=== PATIENT | female | born 1945 | race Caucasian/White ===

== ENCOUNTER → 2016-08-25 | Outpatient (CLI) | payer MEDICARE ==
--- NOTE | 2016-08-25 16:07 | BD ---
EXAMINATION TYPE: MG DEXA axial skeleton. DATE OF EXAM: 08/25/2016 COMPARISON: NONE CLINICAL HISTORY: 71-year-old female with osteoporosis. Height: 62 Weight: 148.2 FRAX RISK QUESTIONS: Alcohol (3 or more units per day): no Family History (Parent hip fracture): no Glucocorticoids (More than 3mos): no (Ex: prednisone, prednisolone, methylprednisolone, dexamethasone, and hydrocortisone). History of Fracture in Adulthood: no Secondary Osteoporosis: 1. Type 1 Diabetes: no 2. Hyperthyroidism: no 3. Menopause before 45: no 4. Malnutrition: no 5. Chronic liver disease: no Rheumatoid Arthritis: no Current Tobacco Use: no RISK FACTORS HISTORY OF: Hip Fracture (Right/Left): no Spine Fracture: no History of Wrist Fracture: no Surgery to Spine/Hip(right/left)/Wrist (right/left): no Family History of Osteoporosis: no Active: yes Diet low in dairy products/other sources of calcium: no Postmenopausal woman: age 46 Lost more than 2 inches in height since high school: no Frequent falls: no Poor Health: no Hyperparathyroidism: no Adrenal Insufficiency: no MEDICATIONS: none Additional History: EXAM MEASUREMENTS: Bone mineral densitometry was performed using the [employer] System. Bone mineral density as measured about the Lumbar spine is: ----- L1-L4(G/cm2): 1.135 T Score Values are as follows: ----- L2: 0.2 ----- L3: -1.2 ----- L4: -1.6 ----- L1-L4: -0.4 Bone mineral density has: increased 3.0 % since study of: 07.26.2014 Bone mineral density about the R hip (g/cm2): 0.949 Bone mineral density about the L hip (g/cm2): 0.817 T Score values are as follows: -----R Neck: -0.6 -----L Neck: -1.6 -----R Total: -0.6 -----L Total: -0.7 Bone mineral density has: decreased -0.6 % since study of: 07.26.2014 IMPRESSION: Osteopenia as indicated by T score values within the left hip. There is slightly increased risk of fracture and the patient may be considered for treatment. Re-Screen 2-5 years. NOTE: T-SCORE=SD OF THE YOUNG ADULT MEAN.
== END | disposition home or self-care (01) ==
LOC: RADBDWWP 12:43
PROVIDERS: ATTEND Internal Medicine Geriatric Medicine
DX: M85.80 Other specified disorders of bone density and structure, unspecified site (principal)
CPT/HCPCS: 77080

== ENCOUNTER → 2017-03-22 | Outpatient (CLI) | payer MEDICARE ==
--- NOTE | 2017-03-24 09:17 | MM ---
Reason for exam: screening (asymptomatic). Last mammogram was performed 1 year and 4 months ago. History: Patient is postmenopausal. Benign excisional biopsy of the left breast, 2000. Took estrogen for 4 years. Physical Findings: A clinical breast exam by your physician is recommended on an annual basis and results should be correlated with mammographic findings. MG 3D Screening Mammo W/Cad Bilateral CC and MLO view(s) were taken. Prior study comparison: November 15, 2015, bilateral MG 3d screening mammo w/cad. July 26, 2014, left breast MG diagnostic mammo LT w CAD. There are scattered fibroglandular densities. Finding: There are typically benign calcifications in both breasts. No significant changes in finding since November 15, 2015 and July 26, 2014. ASSESSMENT: Benign, BI-RAD 2 RECOMMENDATION: Routine screening mammogram of both breasts in 1 year.
== END | disposition home or self-care (01) ==
LOC: RADMAMWWP 11:30
PROVIDERS: ATTEND Internal Medicine Geriatric Medicine
DX: Z12.31 Encounter for screening mammogram for malignant neoplasm of breast (principal)
CPT/HCPCS: 77063; 77067

== ENCOUNTER → 2018-11-24 | Outpatient (CLI) | payer MEDICARE ==
--- NOTE | 2018-11-27 13:44 | BD ---
EXAMINATION TYPE: Axial Bone Density DATE OF EXAM: 11/24/2018 COMPARISON: NONE CLINICAL HISTORY: Height: Weight: FRAX RISK QUESTIONS: RISK FACTORS HISTORY OF: Active: YES Postmenopausal woman: AGE 51 Lost more than 2 inches in height since high school: YES MEDICATIONS: Additional Medications: BABY ASPIRIN Additional History: EXAM MEASUREMENTS: Bone mineral densitometry was performed using the [employer] System. Bone mineral density as measured about the Lumbar spine is: ----- L1-L4(G/cm2): 1.138 T Score Values are as follows: ----- L2: 0.3 ----- L3: -1.0 ----- L4: -0.3 ----- L1-L4: -0.4 Bone mineral density has: INCREASED 2.1 % since study of: 2016 Bone mineral density about the R hip (g/cm2): 0.899 Bone mineral density about the L hip (g/cm2): 0.926 T Score values are as follows: -----R Neck: -1.0 -----L Neck: -0.8 -----R Total: -0.7 -----L Total: -0.6 Bone mineral density has: DECREASED -0.3 % since study of: 2016 IMPRESSION: Normal (Values between +1 and -1 indicate normal bone mass). Consider repeating this study in 5 year s or sooner if there is some new clinical indication. NOTE: T-SCORE=SD OF THE YOUNG ADULT MEAN.
--- NOTE | 2018-11-28 10:19 | MM ---
Reason for exam: screening (asymptomatic). Last mammogram was performed 1 year and 8 months ago. History: Patient is postmenopausal. Benign excisional biopsy of the left breast, 2000. Took estrogen for 4 years. Physical Findings: A clinical breast exam by your physician is recommended on an annual basis and results should be correlated with mammographic findings. MG 3D Screening Mammo W/Cad Bilateral CC and MLO view(s) were taken. Prior study comparison: March 22, 2017, bilateral MG 3d screening mammo w/cad. November 15, 2015, bilateral MG 3d screening mammo w/cad. There are scattered fibroglandular densities. No significant changes when compared with prior studies. ASSESSMENT: Benign, BI-RAD 2 RECOMMENDATION: Routine screening mammogram of both breasts in 1 year.
== END | disposition home or self-care (01) ==
LOC: RADMAMWWP 14:31
PROVIDERS: ATTEND Internal Medicine Geriatric Medicine
DX: Z12.31 Encounter for screening mammogram for malignant neoplasm of breast (principal); M81.0 Age-related osteoporosis without current pathological fracture
CPT/HCPCS: 77063; 77067; 77080

== ENCOUNTER → 2022-07-30 | Outpatient (CLI) | payer MEDICARE ==
--- NOTE | 2022-07-30 14:41 | BD ---
EXAMINATION TYPE: Axial Bone Density DATE OF EXAM: 07/30/2022 CLINICAL HISTORY: 77 years old Female. ICD-10 CODE: M81.0 osteoporosis related Height: 60.2 Weight: 122 FRAX RISK QUESTIONS: nothing to note here RISK FACTORS HISTORY OF: Postmenopausal woman: yes, at 46 yrs old Lost more than 2 inches in height since high school: yes Hyperparathyroidism: no Adrenal Insufficiency: no MEDICATIONS: Additional Medications: calcium, magnesium, vit d, statin for cholesterol, aspirin, Additional History: cholesterol, EXAM MEASUREMENTS: Bone mineral densitometry was performed using the [employer] System. Bone mineral density as measured about the Lumbar spine is: ----- L1-L4(G/cm2): 1.129 T Score Values are as follows: ----- L1: -0.4 ----- L2: -0.5 ----- L3: -1.5 ----- L4: 0.5 ----- L1-L4: -0.4 Z Score Values are as follows: ----- L1: 1.8 ----- L2: 1.7 ----- L3: 0.6 ----- L4: 2.6 ----- L1-L4: 1.7 Bone mineral density has: Decreased -0.8% since study of: 11.24.2018 Bone mineral density about the R hip (g/cm2): 0.882 Bone mineral density about the L hip (g/cm2): 0.888 T Score values are as follows: -----R Neck: -1.1 -----L Neck: -1.2 -----R Total: -1.0 -----L Total: -1.0 Z Score values are as follows: -----R Neck: 1.1 -----L Neck: 1.2 -----R Total: 1.2 -----L Total: 0.1 Bone mineral density has: Decreased -4.3% since study of: 11.24.2018 FRAX%s: The graph provided illustrates a 11.9% chance for a major osteoporotic fx and a 2.5% chance f or the hips probability for fx in 10 years time. IMPRESSION: Osteopenia (T Score between -2.5 and -1). There is slightly increased risk of fracture and the patient may be considered for treatment. Re-Screen 2-5 years. NOTE: T-SCORE=SD OF THE YOUNG ADULT MEAN.
--- NOTE | 2022-07-31 06:34 | MM ---
Reason for Exam: Screening (asymptomatic). Last mammogram was performed 3 year(s) and 9 month(s) ago. Patient History: Menarche at age 9. First Full-Term at age 18. Left ovary removed at age 57. Right ovary removed at age 57. Hysterectomy at age 57. Postmenopausal. Patient used Estrogen for 4 years. 2000, Benign Excisional Biopsy on the left side. Risk Values: Conchis 5 year model risk: 2.0%. NCI Lifetime model risk: 3.3%. Prior Study Comparison: 11/15/2015 Bilateral Screening Mammogram, [facility]. 03/22/2017 Bilateral Screening Mammogram, [facility]. 11/24/2018 Bilateral Screening Mammogram, [facility]. Tissue Density: The breast tissue is heterogeneously dense. This may lower the sensitivity of mammography. Findings: Analyzed By CAD. A few scattered tiny round and dystrophic calcifications bilaterally are present. There are some new grouped indistinct calcifications in the right breast that warrant further workup. Overall Assessment: Incomplete: need additional imaging evaluation, BI-RAD 0 Management: Special View Mammogram of the right breast. Return for additional spot magnification and true lateral views of the right breast.. Patient should continue monthly self-breast exams. A clinical breast exam by your physician is recommended on an annual basis. This exam should not preclude additional follow-up of suspicious palpable abnormalities. Note on Conchis scores and lifetime risk: 1. A Conchis score greater than 3% is considered moderate risk. If this is the case, consider specialist referral to assess eligibility for a risk reducing agent. 2. If overall lifetime risk for the development of breast cancer is 20% or higher, the patient may qualify for future screening with alternating mammogram and breast MRI. Electronically signed and approved by: Kj Blanco M.D.
== END | disposition home or self-care (01) ==
LOC: RADBDWWP 12:29
PROVIDERS: ATTEND Internal Medicine Geriatric Medicine
DX: Z12.31 Encounter for screening mammogram for malignant neoplasm of breast (principal); M85.89 Other specified disorders of bone density and structure, multiple sites; M81.0 Age-related osteoporosis without current pathological fracture; Z90.721 Acquired absence of ovaries, unilateral; Z78.0 Asymptomatic menopausal state
CPT/HCPCS: 77063; 77067; 77080

== ENCOUNTER → 2022-08-06 | Outpatient (CLI) | payer MEDICARE ==
--- NOTE | 2022-08-06 14:37 | MM ---
Reason for Exam: Additional evaluation requested from abnormal screening. Last screening mammogram was performed less than 1 month ago. Patient History: Menarche at age 9. First Full-Term at age 18. Left ovary removed at age 57. Right ovary removed at age 57. Hysterectomy at age 57. Postmenopausal. Patient used Estrogen for 4 years. 2000, Benign Excisional Biopsy on the left side. Risk Values: Conchis 5 year model risk: 2.0%. NCI Lifetime model risk: 3.3%. Tissue Density: Right: The breast tissue is heterogeneously dense. This may lower the sensitivity of mammography. Findings: Analyzed By CAD. There are 4 groups of coarse heterogeneous microcalcifications that have been very gradually increasing. Short interval follow-up recommended. If any progressive increase, tissue sampling can be performed. Overall Assessment: Probably benign, BI-RAD 3 Management: Diagnostic Mammogram of the right breast in 6 months. . Results were given to the patient verbally at the time of exam. Patient should continue monthly self-breast exams. A clinical breast exam by your physician is recommended on an annual basis. This exam should not preclude additional follow-up of suspicious palpable abnormalities. Note on Conchis scores and lifetime risk: 1. A Conchis score greater than 3% is considered moderate risk. If this is the case, consider specialist referral to assess eligibility for a risk reducing agent. 2. If overall lifetime risk for the development of breast cancer is 20% or higher, the patient may qualify for future screening with alternating mammogram and breast MRI. Electronically signed and approved by: Nicanor Mederos M.D. Radiologist
== END | disposition home or self-care (01) ==
LOC: RADMAMWWP 13:45
PROVIDERS: ATTEND Internal Medicine Geriatric Medicine
DX: R92.8 Other abnormal and inconclusive findings on diagnostic imaging of breast (principal); Z78.0 Asymptomatic menopausal state
CPT/HCPCS: 77065; G0279; 77061

== ENCOUNTER → 2023-02-09 | Outpatient (CLI) | payer MEDICARE ==
--- NOTE | 2023-02-09 15:06 | MM ---
Reason for Exam: Follow-up at short interval from prior study. Last screening mammogram was performed 6 month(s) ago. Patient History: Menarche at age 9. First Full-Term at age 18. Left ovary removed at age 57. Right ovary removed at age 57. Hysterectomy at age 57. Postmenopausal. Patient used Estrogen for 4 years. 2000, Benign Excisional Biopsy on the left side. Risk Values: Conchis 5 year model risk: 2.0%. NCI Lifetime model risk: 3.3%. Prior Study Comparison: 11/24/2018 Bilateral Screening Mammogram, [facility]. 07/30/2022 Bilateral MG 3D screening mammo w/cad, [facility]. 08/06/2022 Right MG 3D work up w/cad RT, [facility]. Tissue Density: Right: There are scattered fibroglandular densities. Findings: Analyzed By CAD. Pattern appears stable. Some anterior calcifications are magnified for closer evaluation. These appear coarse and heterogenous. Short-term follow-up can be performed. Indication views may be useful at that time. Pattern appears stable. Some anterior calcifications are magnified for closer evaluation. These appear coarse and heterogenous. Short-term follow-up can be performed. Magnification views may be useful at that time. Overall Assessment: Probably benign, BI-RAD 3 Management: Diagnostic Mammogram of both breasts in 6 months. A negative mammogram report should not preclude additional follow up of suspicious palpable abnormalities. Patient should continue monthly self breast exam. A clinical breast exam by your physician is recommended on an annual basis and results should be correlated with mammographic findings. Electronically signed and approved by: Pj Dixon D.O. Radiologis
== END | disposition home or self-care (01) ==
LOC: RADMAMWWP 14:07
PROVIDERS: ATTEND Internal Medicine Geriatric Medicine
DX: R92.321 Mammographic fibroglandular density, right breast (principal); Z78.0 Asymptomatic menopausal state
CPT/HCPCS: 77065; G0279; 77061

== ENCOUNTER → 2023-08-25 | Outpatient (CLI) | payer MEDICARE ==
--- NOTE | 2023-08-25 14:53 | MM ---
Reason for Exam: Follow-up at short interval from prior study. Last screening mammogram was performed 12 month(s) ago. Patient History: Menarche at age 9. First Full-Term at age 18. Left ovary removed at age 57. Right ovary removed at age 57. Hysterectomy at age 57. Postmenopausal. Patient used Estrogen for 4 years. 2000, Benign Excisional Biopsy on the left side. Risk Values: Conchis 5 year model risk: 1.9%. NCI Lifetime model risk: 3.0%. Tissue Density: The breasts are heterogeneously dense, which may obscure small masses. Findings: Analyzed By CAD. Stable benign-appearing calcifications seen bilaterally. No evidence for mass or distortion. Overall Assessment: Benign, BI-RAD 2 Management: Screening Mammogram of both breasts in 1 year. . Results were given to the patient verbally at the time of exam. Patient should continue monthly self-breast exams. A clinical breast exam by your physician is recommended on an annual basis. This exam should not preclude additional follow-up of suspicious palpable abnormalities. Note on Conchis scores and lifetime risk: 1. A Conchis score greater than 3% is considered moderate risk. If this is the case, consider specialist referral to assess eligibility for a risk reducing agent. 2. If overall lifetime risk for the development of breast cancer is 20% or higher, the patient may qualify for future screening with alternating mammogram and breast MRI. Electronically signed and approved by: Cas Lea M.D. Radiologis
== END | disposition home or self-care (01) ==
LOC: RADMAMWWP 14:24
PROVIDERS: ATTEND Internal Medicine Geriatric Medicine
DX: R92.333 Mammographic heterogeneous density, bilateral breasts (principal); R92.8 Other abnormal and inconclusive findings on diagnostic imaging of breast; R92.1 Mammographic calcification found on diagnostic imaging of breast; Z78.0 Asymptomatic menopausal state
CPT/HCPCS: 77066; G0279; 77062

== ENCOUNTER 2023-12-03 11:10 | Inpatient (IN) | payer MEDICARE ==
--- NOTE | 2023-12-03 11:39 | ED ---
General Adult HPI - General Chief complaint: Headache Stated complaint: dizziness,vision loss Time Seen by Provider: 12/03/23 11:21 Source: patient, RN notes reviewed, old records reviewed Mode of arrival: ambulatory Limitations: no limitations - History of Present Illness Initial comments: 78-year-old female presenting for evaluation of headache, dizziness, and blurred vision. Patient symptoms began yesterday at approximately 3 PM. Patient had contacted her doctor this morning who recommended she present to the emergency department for evaluation of the symptoms. Patient has been taking aspirin throughout the night to treat her headache. She states her vision is somewhat better but feels that it is blurry on the left. No limb weakness or numbness. No speech abnormalities. No chest pain. - Related Data Home Medications Medication Instructions Recorded Confirmed Aspirin [Adult Low Dose Aspirin EC] 162 mg PO BID 07/21/15 12/03/23 Ascorbic Acid [Vitamin C] 1,000 mg PO DAILY 12/03/23 12/03/23 Calcium Carbonate [Calcium] 1,200 mg PO DAILY 12/03/23 12/03/23 Cholecalciferol (Vitamin D3) 75 mcg PO DAILY 12/03/23 12/03/23 [Vitamin D3 (3000 Iu)] L.acidoph,Paracasei, B.lactis 1 cap PO DAILY 12/03/23 12/03/23 [Probiotic] Magnesium Oxide [Magnesium] 500 mg PO DAILY 12/03/23 12/03/23 Vitamin E (Dl,Tocopheryl Acet) 400 unit PO DAILY 12/03/23 12/03/23 [Vitamin E (400 Iu = 180 mg)] Allergies Allergy/AdvReac Type Severity Reaction Status Date / Time Tetracyclines Allergy Ear Verified 12/03/23 13:58 Swelling Review of Systems ROS Statement: Those systems with pertinent positive or pertinent negative responses have been documented in the HPI. ROS Other: All systems not noted in ROS Statement are negative. Past Medical History Past Medical History: No Reported History History of Any Multi-Drug Resistant Organisms: None Reported Past Surgical History: Appendectomy, Section, Hysterectomy, Tubal Ligation Additional Past Surgical History / Comment(s): bowel resection Past Psychological History: No Psychological Hx Reported Past Alcohol Use History: Rare Past Drug Use History: None Reported General Exam Limitations: no limitations General appearance: alert, in no apparent distress Head exam: Present: atraumatic, normocephalic Eye exam: Present: normal appearance, PERRL, EOMI, other (Patient has a left- sided visual field deficit in both eyes) Neck exam: Present: normal inspection. Absent: tenderness Respiratory exam: Present: normal lung sounds bilaterally. Absent: respiratory distress, wheezes Cardiovascular Exam: Present: regular rate, normal rhythm GI/Abdominal exam: Present: soft. Absent: distended, tenderness Extremities exam: Present: normal inspection, normal capillary refill Neurological exam: Present: alert, oriented X3, CN II-XII intact, other (Visual field deficit is the only abnormality on exam). Absent: motor sensory deficit Psychiatric exam: Present: normal affect, normal mood Skin exam: Present: warm, dry, intact Course Vital Signs 12/03/23 12/03/23 12/03/23 11:13 11:32 12:00 Temperature 97.7 F Pulse Rate 87 73 66 Respiratory 16 16 16 Rate Blood Pressure 156/83 168/84 O2 Sat by Pulse 98 97 97 Oximetry 12/03/23 12/03/23 12/03/23 12:30 12:38 13:00 Temperature Pulse Rate 66 72 70 Respiratory 16 18 16 Rate Blood Pressure 173/71 155/64 174/83 O2 Sat by Pulse 97 98 97 Oximetry Medical Decision Making - Medical Decision Making Was pt. sent in by a medical professional or institution (Dr. PA, SPIRAL BINDER, urgent care, hospital, or retirement...) When possible be specific @ -No Did you speak to anyone other than the patient for history (EMS, parent, family, police, friend...)? What history was obtained from this source @ -No Did you review nursing and triage notes (agree or disagree)? Why? @ -I reviewed and agree with nursing and triage notes Were old charts reviewed (outside hosp., previous admission, EMS record, old EKG, old radiological studies, urgent care reports/EKG's, retirement records)? Report findings @ -No old charts were reviewed Differential CVA Ischemic stroke, hemorrhagic stroke, brain tumor, atypical migraine, Wernicke's encephalopathy, seizure, multiple sclerosis, meningitis, encephalitis, hypoglycemia, Guillain-Williamson, electrolytes disturbance, myasthenia gravis.... This is not meant to be an all-inclusive list EKG interpreted by me (3pts min.). @ -[Sinus rhythm rate of 70, WA interval 175, QRS duration 106, QTc [address] segment elevation. X-rays interpreted by me (1pt min.). @ -None done CT interpreted by me (1pt min.). @CT brain and CT angiography negative for intracranial hemorrhage, showing acute for subacute right occipital CVA consistent with patient's symptoms and exam findings. U/S interpreted by me (1pt. min.). @ -None done What testing was considered but not performed or refused? (CT, X-rays, U/S, l abs)? Why? @ -None What meds were considered but not given or refused? Why? @ -None Did you discuss the management of the patient with other professionals (professionals i.e. , PA, SPIRAL BINDER, lab, RT, psych nurse, social media content specialist, imaging technologist, teacher, grants officer, rn case mgr)? Give summary @ -No Was smoking cessation discussed for >3mins.? @ -No Was critical care preformed (if so, how long)? @ -No Were there social determinants of health that impacted care today? How? (Homelessness, low income, unemployed, alcoholism, drug addiction, transportation, low edu. Level, literacy, decrease access to med. care, long-term, rehab)? @ -No Was there de-escalation of care discussed even if they declined (Discuss DNR or withdrawal of care, Hospice)? DNR status @ -No What co-morbidities impacted this encounter? (DM, HTN, Smoking, COPD, CAD, Cancer, CVA, ARF, Chemo, Hep., AIDS, mental health diagnosis, sleep apnea, morbid obesity)? @ -None Was patient admitted / discharged? Hospital course, mention meds given and route, prescriptions, significant lab abnormalities, going to OR and other pertinent info. @ -[78-year-old female with left lateral vision loss and bilateral eyes. Exam concerning for CVA. Patient received CT CT angiography, EKG, laboratory testing. CT shows a subacute or acute infarct in the right occipital lobe which is consistent with the patient's symptoms. Patient admitted for further stroke evaluation. MRI has been ordered and contacted. Case discussed with Dr. Harry who will admit. Undiagnosed new problem with uncertain prognosis? @ -No Drug Therapy requiring intensive monitoring for toxicity (Heparin, Nitro, Insulin, Cardizem)? @ -No Were any procedures done? @ -No Diagnosis/symptom? @ -CVA Acute, or Chronic, or Acute on Chronic? @ -[acute Uncomplicated (without systemic symptoms) or Complicated (systemic symptoms)? @ -Default Side effects of treatment? @ -No Exacerbation, Progression, or Severe Exacerbation? @ -No Poses a threat to life or bodily function? How? (Chest pain, [place], HI, pneumonia, PE, COPD, DKA, ARF, appy, cholecystitis, CVA, Diverticulitis, Homicidal, Suicidal, threat to staff... and all critical care pts) @Yes, CVA - Lab Data Result diagrams: 12/03/23 11:38 12/03/23 11:38 Lab Results 12/03/23 12/03/23 12/03/23 Range/Units 11:38 11:38 11:38 WBC 8.1 (3.8-10.6) k/uL RBC 4.51 (3.80-5.40) m/uL Hgb 14.0 (11.4-16.0) gm/dL Hct 41.6 (34.0-46.0) % MCV 92.4 (80.0-100.0) fL MCH 31.0 (25.0-35.0) pg MCHC 33.5 (31.0-37.0) g/dL RDW 12.9 (11.5-15.5) % Plt Count 272 (150-450) k/uL MPV 7.7 Neutrophils % 62 % Lymphocytes % 26 % Monocytes % 8 % Eosinophils % 2 % Basophils % 1 % Neutrophils # 5.0 (1.3-7.7) k/uL Lymphocytes # 2.1 (1.0-4.8) k/uL Monocytes # 0.7 (0-1.0) k/uL Eosinophils # 0.2 (0-0.7) k/uL Basophils # 0.1 (0-0.2) k/uL PT 10.3 (10.0-12.5) sec INR 0.9 (<1.2) APTT 21.8 L (22.0-30.0) sec Sodium 138 (137-145) mmol/L Potassium 4.5 (3.5-5.1) mmol/L Chloride 105 (98-107) mmol/L Carbon Dioxide 25 (22-30) mmol/L Anion Gap 8 mmol/L BUN 22 H (7-17) mg/dL Creatinine 0.79 (0.52-1.04) mg/dL Est GFR (CKD-EPI)AfAm 83 (>60 ml/min/1.73 sqM) Est GFR (CKD-EPI)NonAf 72 (>60 ml/min/1.73 sqM) Glucose 133 H (74-99) mg/dL Calcium 10.1 (8.4-10.2) mg/dL Total Bilirubin 0.6 (0.2-1.3) mg/dL AST 30 (14-36) U/L ALT 16 (4-34) U/L Alkaline Phosphatase 54 (38-126) U/L Creatine Kinase 48 (30-135) U/L Troponin I (0.000-0.034) ng/mL Total Protein 6.7 (6.3-8.2) g/dL Albumin 3.7 (3.5-5.0) g/dL 12/03/23 Range/Units 11:38 WBC (3.8-10.6) k/uL RBC (3.80-5.40) m/uL Hgb (11.4-16.0) gm/dL Hct (34.0-46.0) % MCV (80.0-100.0) fL MCH (25.0-35.0) pg MCHC (31.0-37.0) g/dL RDW (11.5-15.5) % Plt Count (150-450) k/uL MPV Neutrophils % % Lymphocytes % % Monocytes % % Eosinophils % % Basophils % % Neutrophils # (1.3-7.7) k/uL Lymphocytes # (1.0-4.8) k/uL Monocytes # (0-1.0) k/uL Eosinophils # (0-0.7) k/uL Basophils # (0-0.2) k/uL PT (10.0-12.5) sec INR (<1.2) APTT (22.0-30.0) sec Sodium (137-145) mmol/L Potassium (3.5-5.1) mmol/L Chloride (98-107) mmol/L Carbon Dioxide (22-30) mmol/L Anion Gap mmol/L BUN (7-17) mg/dL Creatinine (0.52-1.04) mg/dL Est GFR (CKD-EPI)AfAm (>60 ml/min/1.73 sqM) Est GFR (CKD-EPI)NonAf (>60 ml/min/1.73 sqM) Glucose (74-99) mg/dL Calcium (8.4-10.2) mg/dL Total Bilirubin (0.2-1.3) mg/dL AST (14-36) U/L ALT (4-34) U/L Alkaline Phosphatase (38-126) U/L Creatine Kinase (30-135) U/L Troponin I <0.012 (0.000-0.034) ng/mL Total Protein (6.3-8.2) g/dL Albumin (3.5-5.0) g/dL Disposition Clinical Impression: CVA (cerebral vascular accident), Homonymous hemianopia Disposition: ADMITTED IP TO THIS [facility] Condition: Stable Is patient prescribed a controlled substance at d/c from ED?: No Time of Disposition: 13:45
[2023-12-03 11:43] LABS: Basophils # (A) 0.1 k/uL (0-0.2); Basophils % (A) 1 %; Eosinophils # (A) 0.2 k/uL (0-0.7); Eosinophils % (A) 2 %; HCT 41.6 % (34.0-46.0); Lymphocytes # (A) 2.1 k/uL (1.0-4.8); Lymphocytes % (A) 26 %; MCHC 33.5 g/dL (31.0-37.0); MCV 92.4 fL (80.0-100.0); Mean Platelet Volume 7.7; Monocytes # (A) 0.7 k/uL (0-1.0); Monocytes % (A) 8 %; Neutrophils % (A) 62 %; Platelet Count 272 k/uL (150-450); RBC 4.51 m/uL (3.80-5.40); RDW 12.9 % (11.5-15.5); WBC 8.1 k/uL (3.8-10.6)
[2023-12-03] MEDS: SODIUM CHLORIDE 0.9% 500 ML 500 ML IV STA (11:52)
[2023-12-03 12:00] LABS: INR 0.9 (<1.2); Prothrombin Time 10.3 sec (10.0-12.5)
[2023-12-03 12:02] LABS: ALT 16 U/L (4-34); AST 30 U/L (14-36); African American GFR (CKD) 83 (>60 ml/min/1.73 sqM); Albumin 3.7 g/dL (3.5-5.0); Alkaline Phosphatase 54 U/L (38-126); Anion Gap 8 mmol/L; Blood Urea Nitrogen 22 mg/dL (7-17); Calcium 10.1 mg/dL (8.4-10.2); Carbon Dioxide 25 mmol/L (22-30); Chloride 105 mmol/L (98-107); Creatine Kinase 48 U/L (30-135); Glucose 133 mg/dL (74-99); Non-African American GFR(CKD) 72 (>60 ml/min/1.73 sqM); Potassium 4.5 mmol/L (3.5-5.1); Sodium 138 mmol/L (137-145); Total Bilirubin 0.6 mg/dL (0.2-1.3); Total Protein 6.7 g/dL (6.3-8.2)
[2023-12-03 12:13] LABS: Partial Thromboplastin Time 21.8 sec (22.0-30.0)
--- NOTE | 2023-12-03 12:58 | CT ---
EXAMINATION TYPE: CT brain wo con CT DLP: 1085 mGycm, Automated exposure control for dose reduction was used. DATE OF EXAM: 12/03/2023 12:45 PM COMPARISON: None. CLINICAL INDICATION:Female, 78 years old with history of Neuro deficit, acute, stroke suspected, visi on loss in left eye, headache TECHNIQUE: Brain: Multiple axial CT images of the brain were obtained without IV contrast. . Coronal and sagitta l reformats reviewed. FINDINGS: Brain: Extra-axial spaces: No abnormal extra-axial fluid collections. Ventricular system: Within normal limits Cerebral parenchyma: Cerebral atrophy. No acute intraparenchymal hemorrhage or mass effect. Region o f low attenuation within the right occipital lobe with loss of saul-white differentiation. The remain ing saul-white junction is well differentiated. Scattered hypoattenuating areas are seen within the w lovely matter. Cerebellum: Unremarkable. Mass effect: No evidence of midline shift. Intracranial vasculature: Atherosclerotic calcifications of the intracranial vessels. Soft tissues: Normal. Calvarium/osseous structures: No depressed skull fracture. Paranasal sinuses and mastoid air cells: Mastoid air cells are clear. Moderate mucosal thickening in the left sphenoid sinus. Remaining paranasal sinuses are relatively clear. Visualized orbits: Orbital contents are intact. IMPRESSION: 1. Acute/subacute CVA involving the right occipital lobe. 2. Nonspecific white matter changes, likely secondary to chronic small vessel ischemic disease. Findings called to ER at 12:56 pm on 12/03/2023. [facility], , 12/03/2023 12:56 PM
--- NOTE | 2023-12-03 13:05 | CT ---
EXAMINATION TYPE: CT angio head neck CT DLP: 333.5 mGycm, Automated exposure control for dose reduction was used. DATE OF EXAM: 12/03/2023 12:47 PM COMPARISON: . CLINICAL INDICATION:Female, 78 years old with history of Neuro deficit, acute, stroke suspected; PHH, vision loss in left eye, headache TECHNIQUE: Axially acquired helical CT angiogram of the head and neck was obtained with contrast util izing 75 cc of Isovue-370 administered intravenously. Axial images are supplemented with 3D reconstru ctions which were post-processed at an independent workstation. NASCET criteria used. FINDINGS: CTA HEAD: No evidence of acute intracranial hemorrhage, mass effect, or midline shift. The ventricles, sulci, a nd cisterns are unremarkable. The visualized portions of the internal carotid arteries, middle cerebral arteries, anterior cerebral arteries, and posterior cerebral arteries are patent. The basilar and vertebral arteries are patent. CTA NECK: Right Carotid System: The common carotid artery and external carotid artery are patent. Mild calcified plaque at the caroti d bifurcation. The carotid bifurcation demonstrates no evidence of hemodynamically significant stenos is. The remaining portions of the internal carotid artery demonstrate normal size without significant narrowing. Left Carotid System: The common carotid artery and external carotid artery are patent. The carotid bifurcation demonstrate s no evidence of hemodynamically significant stenosis. The remaining portions of the internal carotid artery demonstrate normal size without significant narrowing. Vertebral arteries are patent without evidence hemodynamically significant stenosis. There is a three-vessel aortic arch. The origins of the great vessels are patent. No evidence of hemo dynamically significant stenosis. Changes of the cervical spine. Grade 1 anterolisthesis of C2 on C3. Moderate retrolisthesis of C4 on C5 and C5 on C6. IMPRESSION: 1. No evidence of dissection of the cervical internal carotid arteries or vertebral arteries or any e vidence of significant stenosis at the carotid bifurcations. 2. No evidence of high-grade stenosis or intracranial aneurysm. [facility], , 12/03/2023 1:03 PM
[2023-12-03] MEDS: ASPIRIN 325 MG TAB PO STA (13:27)
[2023-12-03] MEDS: ASPIRIN 81 MG PO STA (13:28)
[2023-12-03] MEDS ORDERED: ACETAMINOPHEN TAB 325 MG TAB PO PRN (13:40)
[2023-12-03] MEDS: SODIUM CHLORIDE 0.9% 1,000 ML IV SCH (14:42)
[2023-12-03] MEDS: CLOPIDOGREL 75 MG TAB PO SCH (17:22)
--- NOTE | 2023-12-03 18:02 | CA ---
Transthoracic Echo Report Name: Regine Ramirez Age: 78 Gender: F : 1945 Exam Date: 12/03/2023 14:56 Exam Location: [facility] Ht (in): 62 Wt (lb): 128 Ordering Physician: Jewel Hyatt MD Attending/Referring Phys: [id number], Ed[employer] Handler Yanique Cespedes RDCS Procedure CPT: Indications: Thrombus Cardiac Hx: Technical Quality: Fair Contrast 1: Total Dose (mL): Contrast 2: Total Dose (mL): MEASUREMENTS (Male / Female) Normal Values 2D ECHO LV Diastolic Diameter PLAX 3.7 cm 4.2 - 5.9 / 3.9 - 5.3 cm LV Systolic Diameter PLAX 1.9 cm IVS Diastolic Thickness 1.1 cm 0.6 - 1.0 / 0.6 - 0.9 cm LVPW Diastolic Thickness 1.0 cm 0.6 - 1.0 / 0.6 - 0.9 cm LV Relative Wall Thickness 0.6 RV Internal Dim ED PLAX 3.8 cm LA Volume 25.6 cm??? 18 - 58 / 22 - 52 cm??? LA Volume Index 16.0 cm???/m??? 16 - 28 cm???/m??? M-MODE Aortic Root Diameter MM 3.0 cm LA Systolic Diameter MM 2.8 cm LA Ao Ratio MM 1.0 AV Cusp Separation MM 1.9 cm DOPPLER AV Peak Velocity 117.2 cm/s AV Peak Gradient 5.5 mmHg AV Mean Velocity 74.5 cm/s AV Mean Gradient 2.6 mmHg AV Velocity Time Integral 21.8 cm LVOT Peak Velocity 101.5 cm/s LVOT Peak Gradient 4.1 mmHg LVOT Velocity Time Integral 21.8 cm MV Area PHT 2.3 cm??? Mitral E Point Velocity 55.6 cm/s Mitral A Point Velocity 99.2 cm/s Mitral E to A Ratio 0.6 MV Deceleration Time 322.9 ms MV E' Velocity 5.9 cm/s Mitral E to MV E' Ratio 9.4 TR Peak Velocity 223.1 cm/s TR Peak Gradient 19.9 mmHg Right Ventricular Systolic Press 24.9 mmHg FINDINGS Left Ventricle Mild concentric left ventricular hypertrophy. Left ventricular cavity size normal. Normal left ventricular systolic function with no obvious regional wall motion abnormalities. Left ventricular ejection fraction is estimated at 55-60 %. Grade 1 diastolic dysfunction. Right Ventricle Mild right ventricular dilatation. Right ventricular systolic pressure within normal limits. Right Atrium Normal right atrial size. Left Atrium Normal left atrial size. Mitral Valve Structurally normal mitral valve. Mitral valve thickened. Mild mitral annular calcification. Mild mitral regurgitation. Aortic Valve Trileaflet aortic valve. No aortic valve stenosis or regurgitation. Aortic valve sclerosis. Tricuspid Valve Structurally normal tricuspid valve. Mild tricuspid regurgitation. Pulmonic Valve Structurally normal pulmonic valve. Pericardium No pericardial effusion. Aorta Normal size aortic root and proximal ascending aorta. CONCLUSIONS LVEF 55 to 60% Grade 1 diastolic function Mild concentric Elase No obvious regional wall motion abnormality Mild RV dilatation with normal systolic function Mild mitral regurgitation. Aortic valve sclerosis but no stenosis Previewed by: Dr Pato Lizama (Electronically Signed) Final Date: 03 December 2023 18:00
--- NOTE | 2023-12-03 18:52 | US ---
EXAMINATION TYPE: US carotid duplex BILAT DATE OF EXAM: 12/03/2023 COMPARISON: NONE CLINICAL INDICATION: Female, 78 years old with history of CVA; CVA TECHNIQUE: Grayscale, color Doppler and spectral Doppler evaluation of the bilateral carotid systems and vertebral arteries.Indirect Doppler criteria was utilized. FINDINGS: EXAM MEASUREMENTS: RIGHT: Peak Systolic Velocity (PSV) cm/sec ----- Right CCA: 72.5 ----- Right ICA: 91.9 ----- Right ECA: 106.4 ICA/CCA ratio: 1.3 RIGHT: End Diastole cm/sec ----- Right CCA: 11.1 ----- Right ICA: 32.1 ----- Right ECA: 11. LEFT: Peak Systolic Velocity (PSV) cm/sec ----- Left CCA: 104.8 ----- Left ICA: 110.2 ----- Left ECA: 80.6 ICA/CCA ratio: 1.1 LEFT: End Diastole cm/sec ----- Left CCA: 19.2 ----- Left ICA: 33.3 ----- Left ECA: 11.6 VERTEBRALS (direction of flow): Right Vertebral: Antegrade Left Vertebral: Antegrade Rhythm: Normal INFECTION CONTROL RN NOTES: No elevated velocities or evidence of stenosis, small amount of plaque noted at bi lateral bulbs IMPRESSION: 1. Minimal plaquing without significant flow-limiting stenosis based on velocities. Criteria for Assigning % of Stenosis / Diameter reduction (Estimation based on the indirect measurements of the internal carotid artery velocities (ICA PSV). 1. Normal (no stenosis)=ICA PSV < 125 cm/s: ratio < 2.0: ICA EDV<40 cm/s. 2. Less than 50% stenosis=ICA PSV < 125 cm/s: ratio < 2.0: ICA EDV<40 cm/s. 3. 50 to 69% stenosis=ICA PSV of 125 to 230 cm/s: ration 2.0 ? 4.0: ICA EDV 40-100 cm/s. 4. Greater than 70% stenosis to near occlusion= ICA PSV > 230 cm/s: ratio > 4.0: ICA EDV > 100 cm/s. 5. Near occlusion= ICA PSV velocities may be low or undetectable: variable ratio and ICA EDV. 6. Total occlusion=unable to detect flow. [facility], Workstation: [facility], 12/03/2023 6:50 PM
[2023-12-03] MEDS: ATORVASTATIN 80 MG TAB PO SCH (21:04)
[2023-12-03] MEDS: amLODIPine 2.5 MG TAB PO SCH (21:04)
--- NOTE | 2023-12-04 08:48 | P.HPIM ---
History of Present Illness H&P Date: 12/03/23 HISTORY OF PRESENT ILLNESS: 78-year-old active patient for last 20 years with past history of osteoarthritis, mild osteopenia, elevated blood pressure and hyperlipidemia who called the office in the morning and left a voicemail complaining that she had severe headache the day before lasted long period of time with very impaired bowel and that taking 2 aspirin took a nap took another 2 aspirin to settle the headache down and then developed to have significant vision loss and abnormal balance and gait and slight confusion decided not to seek any help woke up the following morning which is 11/2023 having still lack of vision in part of her visual field the left side continue to have severe headache and continue to be slightly bit confused and mildly altered. Called her back to go to the emergency room as soon as possible. Patient mated to [facility] by 11:00 was seen and evaluated still to some degree having lack of vision and blurriness mostly on the left side but no weakness her speech is normal not able to do gait exam at the time. At the presentation her blood pressure was mildly elevated with pulse running 70 bpm laboratory value shows normal CBC chemistry with mildly elevated blood sugar with normal troponin normal liver function test coagulation. EKG showed sinus rhythm with incomplete right bundle branch block which is old. CAT scan of the brain shows acute/subacute stroke involving the right occipital lobe nonspecific white matter changes secondary to chronic small vessel disease. CTA of the brain and the neck shows no evidence of dissection of the cervical internal carotid artery or vertebral artery or any evidence of significant stenosis of the carotid bifurcation. No evidence of high-grade stenosis or intracranial aneurysm. The patient at this point was admitted hospital continue to have the upper quarter of her vision in the left side loss. Neurology was consulted patient was admitted to telemetry testing including echocardiogram, carotid ultrasound and MRI of the brain was scheduled. REVIEW OF SYSTEMS: CONSTITUTIONAL: Well-developed no acute respiratory distress. EYES: No icterus sclerae, no conjunctivitis. EARS, NOSE, MOUTH, THROAT, and FACE: No sore throat, lymphadenopathy, carotid bruits or deformity. RESPIRATORY: No SOB cough or wheezes. CARDIOVASCULAR: No CP, Palpitation, PND, Orthopnea, or angina. GASTROINTESTINAL: No Abd pain, Nausea or vomiting, no Diarrhea or constipation, No GI Bleed, no distention or masses. GENITOURINARY: Negative for Hematuria or UTI, no kidney stones. INTEGUMENT/BREAST: Negative for any muscular injury with mild osteoarthritis.. HEMATOLOGIC/LYMPHATIC: Negative for bleed or purpura. MUSCULOSKELTAL: Negative for Myalgia or arthralgia. NEURLOGICAL: No weakness or syncope positive for blurred vision and lack of vision on the left side. BEHAVIORAL/PSYCH: Negative. ENDOCRINE: Negative. PHYSICAL EXAMINATION: General Appearance: Alert, cooperative, no distress, appears stated age. Neck HEENT: Supple, no lymphadenopathy, no thyroid enlargement, no carotid bruits. Lungs: Clear to auscultation without crackles or wheezes no rhonchi, no deformity. Chest Wall: Chest wall normal expansion with deep inspiration no tenderness and no deformity was found on exam, no costochondral pain or discomfort. Heart: Regular rate and rhythm, S1, S2 normal, no murmur, rub or gallop. Back: Symmetric, no curvature, ROM normal, no CVA tenderness. Abdomen: Soft, non-tender, bowel sounds active all four quadrants, no masses, no organomegaly. Extremities: Extremities normal, atraumatic, no cyanosis or edema. Pulses: 2+ and symmetric. Skin: Skin color, texture, tugor normal, no rashes or lesions. Neurologic: Alert oriented x3 cranial nerves II through XII show slight affect with lack of vision on the left side mostly quarter of the visual field per patient description., generalized weakness not able to do gait exam visual field apparently has lack of the left side to the left side mostly the upper part. ASSESSMENT AND PLAN: _Stroke impacting the right occipital area affecting quarter of the vision on the left upper bilaterally. The patient was admitted, will consult neurology, MRI of the brain will be done, continue with the tighter blood pressure control amlodipine 2.5 mg was started also higher dose of statin restarted at this point. _Elevated blood pressure: Will initiate amlodipine 2.5 mg twice a day hold only if systolic blood pressure below 120. _Hyperlipidemia: Patient was initiated on a higher dose of statin with atorvastatin 40 mg a day. _Vitamin D deficiency: Has been on vitamin D supplement for a long time along with calcium continue medication. _Mild confusion with altered mental status: Patient still not acting of herself which is most likely part of the stroke itself and impact related to the headache and probably the confusion from lack of vision, will continue current management aggressive physical therapy and Occupational Therapy. _GI prophylaxis: Patient be on Pepcid 20 mg daily. _DVT prophylaxis: Early mobilization and knee-high LORENA hose. CODE STATUS: Full code. Discussion: With patient's current presentation we will be aggressive on secondary prevention patient might require bedside regular echocardiogram to go for transesophageal echocardiogram or at least visualized the septum between the atrium to make sure is no patent miranda ovale or any deformity consistent with valvular heart disease however atrial septal defect or ventricular septal defect which patient is not symptomatic currently. 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 Admit patient to the inpatient service for more than 2 night stay. Past Medical History Past Medical History: No Reported History History of Any Multi-Drug Resistant Organisms: None Reported Past Surgical History: Appendectomy, Section, Hysterectomy, Tubal Ligation Additional Past Surgical History / Comment(s): bowel resection Past Psychological History: No Psychological Hx Reported Past Alcohol Use History: Rare Past Drug Use History: None Reported Medications and Allergies Home Medications Medication Instructions Recorded Confirmed Type Aspirin [Adult Low Dose Aspirin EC] 162 mg PO BID 07/21/15 12/03/23 History Ascorbic Acid [Vitamin C] 1,000 mg PO DAILY 12/03/23 12/03/23 History Calcium Carbonate [Calcium] 1,200 mg PO DAILY 12/03/23 12/03/23 History Cholecalciferol (Vitamin D3) 75 mcg PO DAILY 12/03/23 12/03/23 History [Vitamin D3 (3000 Iu)] L.acidoph,Paracasei, B.lactis 1 cap PO DAILY 12/03/23 12/03/23 History [Probiotic] Magnesium Oxide [Magnesium] 500 mg PO DAILY 12/03/23 12/03/23 History Vitamin E (Dl,Tocopheryl Acet) 400 unit PO DAILY 12/03/23 12/03/23 History [Vitamin E (400 Iu = 180 mg)] Allergies Allergy/AdvReac Type Severity Reaction Status Date / Time Tetracyclines Allergy Ear Verified 12/03/23 13:58 Swelling Physical Exam Vitals: Vital Signs Temp Pulse Resp BP Pulse Ox 12/03/23 16:04 90 18 162/68 99 12/03/23 16:00 90 16 162/68 12/03/23 15:00 71 15 156/67 97 12/03/23 14:00 73 16 169/70 98 12/03/23 13:00 70 16 174/83 97 12/03/23 12:38 72 18 155/64 98 12/03/23 12:30 66 16 173/71 97 12/03/23 12:00 66 16 168/84 97 12/03/23 11:32 73 16 97 12/03/23 11:13 97.7 F 87 16 156/83 98 Intake and Output 12/03/23 12/03/23 12/03/23 06:59 14:59 22:59 Other: Weight 58.06 kg Results CBC & Chem 7: 12/03/23 11:38 12/03/23 11:38 Labs: Abnormal Lab Results - Last 24 Hours (Table) 12/03/23 12/03/23 Range/Units 11:38 11:38 APTT 21.8 L (22.0-30.0) sec BUN 22 H (7-17) mg/dL Glucose 133 H (74-99) mg/dL
[2023-12-04] MEDS: CALCIUM CARBONATE 500 MG CHEWABLE PO SCH (08:55)
[2023-12-04] MEDS: CHOLECALCIFEROL 25 MCG (1000 IU) TABLET PO SCH (08:55)
[2023-12-04] MEDS: ASPIRIN 81 MG PO SCH (08:56)
[2023-12-04] MEDS: MAGNESIUM OXIDE 400 MG TAB PO SCH (08:56)
[2023-12-04] MEDS: ASCORBIC ACID 500 MG TAB PO SCH (08:56)
[2023-12-04] MEDS ORDERED: ASPIRIN 325 MG TAB PO SCH (09:00)
--- NOTE | 2023-12-04 10:24 | P.CNNES ---
History of Present Illness Consult date: 12/03/23 Requesting physician: Jewel Hyatt Reason for Consult: CVA History of Present Illness: Patient is a 78-year-old right-handed female came to the hospital today at 11:10 AM for acute onset of visual disturbance. Patient states that yesterday in the morning she did her laundry, dishes, and was doing well. Around 3 PM she suddenly felt dizzy and felt her vision was "messed up", therefore she sat down. She also had a headache which she rated 6-7/10. She does take 2 baby aspirins twice a day as a regular medication. She took for more baby aspirins. As her visual disturbance persisted, she decided to come to the ER today. Vital signs on arrival blood pressure 156/83, pulse [address] head showed acute/subacute CVA involving the right occipital lobe. Nonspecific white matter changes, likely secondary to chronic small vessel ischemic disease. I personally reviewed CT head and agree with the findings. EKG showed sinus rhythm. Blood test shows normal CBC, PT PTT, normal CMP. Troponin negative. Home medications include aspirin 162 mg twice daily, which she has been taking for about 5 years, magnesium, vitamin D, calcium, probiotic. Patient denies any history of strokes or TIA. Her brother had history of a stroke. Patient denies any history of migraines. Patient denies any history of hypertension or diabetes. She has never smoked, drinks alcohol once in a while. Review of Systems All other review of systems completely unremarkable, except for pertinent positives and negatives as mentioned in HPI. Past Medical History Past Medical History: No Reported History History of Any Multi-Drug Resistant Organisms: None Reported Past Surgical History: Appendectomy, Section, Hysterectomy, Tubal Ligation Additional Past Surgical History / Comment(s): bowel resection Past Psychological History: No Psychological Hx Reported Past Alcohol Use History: Rare Past Drug Use History: None Reported Medications and Allergies Home Medications Medication Instructions Recorded Confirmed Type Aspirin [Adult Low Dose Aspirin EC] 162 mg PO BID 07/21/15 12/03/23 History Ascorbic Acid [Vitamin C] 1,000 mg PO DAILY 12/03/23 12/03/23 History Calcium Carbonate [Calcium] 1,200 mg PO DAILY 12/03/23 12/03/23 History Cholecalciferol (Vitamin D3) 75 mcg PO DAILY 12/03/23 12/03/23 History [Vitamin D3 (3000 Iu)] L.acidoph,Paracasei, B.lactis 1 cap PO DAILY 12/03/23 12/03/23 History [Probiotic] Magnesium Oxide [Magnesium] 500 mg PO DAILY 12/03/23 12/03/23 History Vitamin E (Dl,Tocopheryl Acet) 400 unit PO DAILY 12/03/23 12/03/23 History [Vitamin E (400 Iu = 180 mg)] Allergies Allergy/AdvReac Type Severity Reaction Status Date / Time Tetracyclines Allergy Ear Verified 12/03/23 13:58 Swelling Physical Examination - Vital Signs Vital Signs: Vital Signs Temp Pulse Resp BP Pulse Ox 12/03/23 13:00 70 16 174/83 97 12/03/23 12:38 72 18 155/64 98 12/03/23 12:30 66 16 173/71 97 12/03/23 12:00 66 16 168/84 97 12/03/23 11:32 73 16 97 12/03/23 11:13 97.7 F 87 16 156/83 98 Intake and Output 12/03/23 12/03/23 12/03/23 06:59 14:59 22:59 Other: Weight 58.06 kg Patient is an elderly female, very pleasant, in no acute distress. Patient is alert awake oriented to time place and person. Speech and language functions are normal. Patient can name and repeat very well. No aphasia or dysarthria. Attention, concentration and fund of knowledge is adequate. On cranial nerve examination, pupils are equal, round and reacting to light, visual rudolph reveal left homonymous hemianopia, which is very dense in the left upper quadrant, and tapers laterally in the left lower quadrant. Extraocular muscles are intact with no nystagmus. Face is symmetric, tongue protrudes to the midline. Palatal elevation and sensation normal, hearing and shoulder shrug normal, facial sensation normal. On muscle strength testing, there is no pronator drift and the strength is normal in arms and legs distally and proximally. Deep tendon reflexes are symmetric 1 in the upper and lower limbs and plantars downgoing. Sensory to touch is equal with no neglect on double simultaneous stimulation. Cerebellar function showed no ataxia for [id number] testing. No dysdiadochokinesia. No ataxia for [id number] testing on either side. Tone and bulk of muscles normal. Gait deferred.. On general examination, there is no carotid bruit or murmur, S1-S2 audible. Chest is clear on consultation. Abdomen is soft nontender. No organomegaly, bowel sounds present. Peripheral pulses are present. No peripheral edema. Results - Laboratory Findings CBC and BMP: 12/03/23 11:38 12/03/23 11:38 Abnormal Lab Findings: Abnormal Labs 12/03/23 12/03/23 11:38 11:38 APTT 21.8 L BUN 22 H Glucose 133 H Assessment and Plan Assessment: * Acute ischemic stroke involving the right occipital lobe. Patient has presented with left homonymous hemianopia. The visual field deficit is more prominent in the left upper quadrant and tapers laterally in the left lower quadrant. NIH stroke scale 2. * Hypertension * Hyperlipidemia Plan: * MRI of the brain without contrast, evaluate for acute CVA * 2-D echo with bubble study to rule out PFO * CTA head and neck showed: No evidence of dissection of the cervical internal carotid arteries or vertebral arteries or any evidence of significant stenosis at the carotid bifurcations. No evidence of high-grade stenosis or intracranial aneurysm. * Fasting a.m. lipid panel * Hemoglobin A1c 5.8 * Permissive hypertension for next 24-48 hours * Patient has been on aspirin regimen 162 mg twice a day. Patient has failed aspirin. We will switch to Plavix 75 mg daily. Patient to be maintained on aspirin and Plavix together for 21 days, then stop aspirin and continue Plavix. * Neuro checks as per protocol. * Telemetry monitoring rule out any arrhythmia * PT, OT, speech therapy * DVT prophylaxis: Heparin 5000 units subcu every 8 hours * Neurology will continue to follow. * Discussed with primary physician. Thank you for the consult.
[2023-12-04 10:56] LABS: Chol/HDL Ratio 3.31 Ratio
[2023-12-04] MEDS: LINAGLIPTIN 5 MG TABLET PO SCH (12:16)
--- NOTE | 2023-12-04 12:25 | MR ---
EXAMINATION TYPE: MR brain wo con DATE OF EXAM: 12/04/2023 COMPARISON: CT brain 12/03/2023 HISTORY: Neuro deficit, evaluate for stroke. CONTRAST: Performed utilizing 0 mL intravenous Gadavist gadolinium contrast. TECHNIQUE: Multiplanar, multiecho imaging on a 3.0 Mojgan magnet is performed through the brain. Stud y is performed within 24 hours of arrival to the hospital. The craniovertebral junction is normal. The pituitary is normal. Diffusion-weighted imaging is performed. Hyperintensities in the inferior medial right occipital lob e. This area is hypointense on T1-weighted sequences this area is hyperintense on T2-weighted sequenc es. Findings are compatible with acute ischemic change. There are scattered. Ventricular white matter hyperintensities on T2 and inversion recovery weighted sequences compatible with chronic white ischemic changes. There is an old lacunar infarct within the left cerebellum . Ventricles and sulci are appropriate for the patient age. IMPRESSION: 1. Acute inferior medial right occipital lobe infarct. 2. 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 3. Chronic appearing periventricular white matter ischemic changes [facility], Workstation: [facility], 12/04/2023 12:22 PM
--- NOTE | 2023-12-04 15:21 | P.PN ---
Subjective Progress Note Date: 12/04/23 HISTORY OF PRESENT ILLNESS: 78-year-old active patient for last 20 years with past history of osteoarthritis, mild osteopenia, elevated blood pressure and hyperlipidemia who called the office in the morning and left a voicemail complaining that she had severe headache the day before lasted long period of time with very impaired bowel and that taking 2 aspirin took a nap took another 2 aspirin to settle the headache down and then developed to have significant vision loss and abnormal balance and gait and slight confusion decided not to seek any help woke up the following morning which is 11/2023 having still lack of vision in part of her visual field the left side continue to have severe headache and continue to be slightly bit confused and mildly altered. Called her back to go to the emergency room as soon as possible. Patient mated to [facility] by 11:00 was seen and evaluated still to some degree having lack of vision and blurriness mostly on the left side but no weakness her speech is normal not able to do gait exam at the time. At the presentation her blood pressure was mildly elevated with pulse running 70 bpm laboratory value shows normal CBC chemistry with mildly elevated blood sugar with normal troponin normal liver function test coagulation. EKG showed sinus rhythm with incomplete right bundle branch block which is old. CAT scan of the brain shows acute/subacute stroke involving the right occipital lobe nonspecific white matter changes secondary to chronic small vessel disease. CTA of the brain and the neck shows no evidence of dissection of the cervical internal carotid artery or vertebral artery or any evidence of significant stenosis of the carotid bifurcation. No evidence of high-grade stenosis or intracranial aneurysm. The patient at this point was admitted hospital continue to have the upper quarter of her vision in the left side loss. Neurology was consulted patient was admitted to telemetry testing including echocardiogram, carotid ultrasound and MRI of the brain was scheduled. 12/04/2023: Patient is recovering from her stroke, still have arrangement for MRI around 11:00 today, carotid ultrasound failed to show any abnormality, library monitor does not show any atrial fibrillation so far and echo was negative for any thrombus or any valvular heart disease. Neurology seen patient yesterday and agree with the current diagnosis which patient had acute right sided inferior medial occipital lobe infarct has affected her visual field of both side with a left lateral upper quarter. Left recommendation to see ophthalmology so far and patient might need to go for transesophageal echocardiogram along with loop recorder monitor to for sure no whether we have A-fib or any PFO. She is not having any headache and Blood pressure and vitals so far has been better controlled remain on amlodipine, Farxiga, atorvastatin, and with neuro recommendation initially to initiate Plavix most likely for 3 weeks along with aspirin and continue on aspirin afterward without Plavix. REVIEW OF SYSTEMS: CONSTITUTIONAL: Well-developed no acute respiratory distress. EYES: No icterus sclerae, no conjunctivitis. EARS, NOSE, MOUTH, THROAT, and FACE: No sore throat, lymphadenopathy, carotid bruits or deformity. RESPIRATORY: No SOB cough or wheezes. CARDIOVASCULAR: No CP, Palpitation, PND, Orthopnea, or angina. GASTROINTESTINAL: No Abd pain, Nausea or vomiting, no Diarrhea or constipation, No GI Bleed, no distention or masses. GENITOURINARY: Negative for Hematuria or UTI, no kidney stones. INTEGUMENT/BREAST: Negative for any muscular injury with mild osteoarthritis.. HEMATOLOGIC/LYMPHATIC: Negative for bleed or purpura. MUSCULOSKELTAL: Negative for Myalgia or arthralgia. NEURLOGICAL: No weakness or syncope positive for blurred vision and lack of vision on the left side. BEHAVIORAL/PSYCH: Negative. ENDOCRINE: Negative. PHYSICAL EXAMINATION: General Appearance: Alert, cooperative, no distress, appears stated age. Neck HEENT: Supple, no lymphadenopathy, no thyroid enlargement, no carotid bruits. Lungs: Clear to auscultation without crackles or wheezes no rhonchi, no deformity. Chest Wall: Chest wall normal expansion with deep inspiration no tenderness and no deformity was found on exam, no costochondral pain or discomfort. Heart: Regular rate and rhythm, S1, S2 normal, no murmur, rub or gallop. Back: Symmetric, no curvature, ROM normal, no CVA tenderness. Abdomen: Soft, non-tender, bowel sounds active all four quadrants, no masses, no organomegaly. Extremities: Extremities normal, atraumatic, no cyanosis or edema. Pulses: 2+ and symmetric. Skin: Skin color, texture, tugor normal, no rashes or lesions. Neurologic: Alert oriented x3 cranial nerves II through XII show slight affect with lack of vision on the left side mostly quarter of the visual field per patient description., generalized weakness not able to do gait exam visual field apparently has lack of the left side to the left side mostly the upper part. ASSESSMENT AND PLAN: _Stroke impacting the right occipital area affecting quarter of the vision on the left upper bilaterally. See neurology so far agree with the current diagnosis, patient is going for MRI of the brain will continue aggressive management for blood pressure and cholesterol will try to find out if she had any PFO or any sign of A-fib. _Elevated blood pressure: Will initiate amlodipine 2.5 mg twice a day hold only if systolic blood pressure below 120. _Hyperlipidemia: Patient was initiated on a higher dose of statin with atorvastatin 40 mg a day. _Vitamin D deficiency: Has been on vitamin D supplement for a long time along with calcium continue medication. _Mild confusion with altered mental status: Patient still not acting of herself which is most likely part of the stroke itself and impact related to the headache and probably the confusion from lack of vision, will continue current management aggressive physical therapy and Occupational Therapy. _GI prophylaxis: Patient be on Pepcid 20 mg daily. Discussion: MRI of the brain is pending, patient might need to go for transesophageal echocardiogram and loop recorder monitor to exclude any pos sibility for A-fib and make sure there is no deformity of the heart muscle could have caused the stroke in the first place. In the meanwhile continue aspirin, most likely Plavix, statin, Farxiga and probably amlodipine. Objective - Vital Signs Vital signs: Vital Signs Temp 98.0 F 12/04/23 08:30 Pulse 85 12/04/23 14:00 Resp 16 12/04/23 14:00 BP 142/63 12/04/23 12:20 Pulse Ox 95 12/04/23 12:20 FiO2 Intake & Output 12/03/23 12/04/23 12/04/23 18:59 06:59 18:59 Intake Total 236 Balance 236 Weight 58.06 kg 53.1 kg Intake: Oral 236 Other: Voiding Method Toilet Toilet # Voids 1 - Labs CBC & Chem 7: 12/03/23 11:38 12/03/23 11:38 Labs: Abnormal Lab Results - Last 24 Hours (Table) 12/03/23 Range/Units 11:38 Cholesterol 207.00 H (0.00-200.00) mg/dL HDL Cholesterol 62.60 H (40.00-60.00) mg/dL
--- NOTE | 2023-12-05 07:58 | P.PN ---
Subjective Progress Note Date: 12/04/23 Patient was seen for a follow-up. Patient was seen multiple times walking in the hallway. She is feels her vision is getting better. No new focal symptoms. Objective - Vital Signs Vital signs: Vital Signs Temp 98.1 F 12/04/23 16:00 Pulse 79 12/04/23 16:00 Resp 16 12/04/23 16:00 BP 126/77 12/04/23 16:00 Pulse Ox 96 12/04/23 16:00 FiO2 Intake & Output 12/04/23 12/04/23 12/05/23 06:59 18:59 06:59 Intake Total 354 Balance 354 Weight 53.1 kg Intake: Oral 354 Other: Voiding Method Toilet Toilet # Voids 1 2 - Exam Mental status, speech and language functions are normal. Cranial nerves significant for some left visual field deficit. It seems to be getting better on the left side. She is often able to see the objects in the left visual field, somewhat inconsistent. It is slightly more prominent in the left upper quadrant, but much better in the left lower quadrant. No pronator drift and the strength is normal. No ataxia. Sensations equal. Gait normal. - Labs CBC & Chem 7: 12/03/23 11:38 12/03/23 11:38 Labs: Abnormal Lab Results - Last 24 Hours (Table) 12/03/23 Range/Units 11:38 Cholesterol 207.00 H (0.00-200.00) mg/dL HDL Cholesterol 62.60 H (40.00-60.00) mg/dL Assessment and Plan Assessment: * Acute ischemic stroke involving the right occipital lobe. Patient has present ed with left homonymous hemianopia. The visual field deficit is more prominent in the left upper quadrant and tapers laterally in the left lower quadrant. NIH stroke scale 2. Her visual field deficit seems to be getting better. * Hypertension * Hyperlipidemia Plan: * MRI of the brain without contrast, revealed acute inferior medial right occip ital lobe infarct. 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 Chronic appearing periventricular white matter ischemic change. I personally reviewed MRI agree with the findings. * 2-D echo revealed mild concentric LVH. No obvious regional wall motion abnormalities. LVEF 55 to 60%. Grade 1 diastolic dysfunction. Normal left atrial size. Mild MR. Mild RV dilation with normal systolic function. * CTA head and neck showed: No evidence of dissection of the cervical internal carotid arteries or vertebral arteries or any evidence of significant stenosis at the carotid bifurcations. No evidence of high-grade stenosis or intracranial aneurysm. * Fasting a.m. lipid panel, with cholesterol 207, LDL 121, HDL 62, triglycerides 117. Agree with starting high intensity statins. Patient was not on any statins prior to arrival. * Hemoglobin A1c 5.8 * Optimize control of blood pressure. BP well-controlled. * Patient has been on aspirin regimen 162 mg twice a day. Patient has failed aspirin. We will switch to Plavix 75 mg daily. Patient to be maintained on aspirin and Plavix together for 21 days, then stop aspirin and continue Plavix. * Suggest 30-day event monitoring outpatient to rule out paroxysmal atrial fibrillation. * Telemetry monitoring rule out any arrhythmia * PT, OT, speech therapy * DVT prophylaxis: Patient low risk. Patient fully ambulatory. * Neurologically clear for discharge.
[2023-12-05 10:35] VITALS: TEMP 97.4
--- NOTE | 2023-12-05 11:08 | P.PN ---
Subjective Progress Note Date: 12/05/23 HISTORY OF PRESENT ILLNESS: 78-year-old active patient for last 20 years with past history of osteoarthritis, mild osteopenia, elevated blood pressure and hyperlipidemia who called the office in the morning and left a voicemail complaining that she had severe headache the day before lasted long period of time with very impaired bowel and that taking 2 aspirin took a nap took another 2 aspirin to settle the headache down and then developed to have significant vision loss and abnormal balance and gait and slight confusion decided not to seek any help woke up the following morning which is 11/2023 having still lack of vision in part of her visual field the left side continue to have severe headache and continue to be slightly bit confused and mildly altered. Called her back to go to the emergency room as soon as possible. Patient mated to [facility] by 11:00 was seen and evaluated still to some degree having lack of vision and blurriness mostly on the left side but no weakness her speech is normal not able to do gait exam at the time. At the presentation her blood pressure was mildly elevated with pulse running 70 bpm laboratory value shows normal CBC chemistry with mildly elevated blood sugar with normal troponin normal liver function test coagulation. EKG showed sinus rhythm with incomplete right bundle branch block which is old. CAT scan of the brain shows acute/subacute stroke involving the right occipital lobe nonspecific white matter changes secondary to chronic small vessel disease. CTA of the brain and the neck shows no evidence of dissection o f the cervical internal carotid artery or vertebral artery or any evidence of significant stenosis of the carotid bifurcation. No evidence of high-grade stenosis or intracranial aneurysm. The patient at this point was admitted hospital continue to have the upper quarter of her vision in the left side loss. Neurology was consulted patient was admitted to telemetry testing including echocardiogram, carotid ultrasound and MRI of the brain was scheduled. 12/04/2023: Patient is recovering from her stroke, still have arrangement for MRI around 11:00 today, carotid ultrasound failed to show any abnormality, teletypesetter monitor does not show any atrial fibrillation so far and echo was negative for any thrombus or any valvular heart disease. Neurology seen patient yesterday and agree with the current diagnosis which patient had acute right sided inferior medial occipital lobe infarct has affected her visual field of both side with a left lateral upper quarter. Left recommendation to see ophthalmology so far and patient might need to go for transesophageal echocardiogram along with loop recorder monitor to for sure no whether we have A-fib or any PFO. She is not having any headache and Blood pressure and vitals so far has been better controlled remain on amlodipine, Farxiga, atorvastatin, and with neuro recommendation initially to initiate Plavix most likely for 3 weeks along with aspirin and continue on aspirin afterward without Plavix. 12/05/2023: After done with MRI showed acute inferior medial right occipital lobe infarct with old infarct in the cerebellum neurology at this point recommending to maximize medical management with higher intensity statin such as atorvastatin 40 mg a day also optimize blood pressure to keep it below 130 systolic patient will be maintained on aspirin and Plavix for total of 21 days then will continue on Plavix. And agree with neurology based on the current finding patient will probably require 30 days heart monitor eventually might ask cardiology to see if having to do loop recorder beneficial or just 30 days heart monitor. REVIEW OF SYSTEMS: CONSTITUTIONAL: Well-developed no acute respiratory distress. EYES: No icterus sclerae, no conjunctivitis. EARS, NOSE, MOUTH, THROAT, and FACE: No sore throat, lymphadenopathy, carotid bruits or deformity. RESPIRATORY: No SOB cough or wheezes. CARDIOVASCULAR: No CP, Palpitation, PND, Orthopnea, or angina. GASTROINTESTINAL: No Abd pain, Nausea or vomiting, no Diarrhea or constipation, No GI Bleed, no distention or masses. GENITOURINARY: Negative for Hematuria or UTI, no kidney stones. INTEGUMENT/BREAST: Negative for any muscular injury with mild osteoarthritis.. HEMATOLOGIC/LYMPHATIC: Negative for bleed or purpura. MUSCULOSKELTAL: Negative for Myalgia or arthralgia. NEURLOGICAL: No weakness or syncope positive for blurred vision and lack of vision on the left side. BEHAVIORAL/PSYCH: Negative. ENDOCRINE: Negative. PHYSICAL EXAMINATION: General Appearance: Alert, cooperative, no distress, appears stated age. Neck HEENT: Supple, no lymphadenopathy, no thyroid enlargement, no carotid bruits. Lungs: Clear to auscultation without crackles or wheezes no rhonchi, no deformity. Chest Wall: Chest wall normal expansion with deep inspiration no tenderness and no deformity was found on exam, no costochondral pain or discomfort. Heart: Regular rate and rhythm, S1, S2 normal, no murmur, rub or gallop. Back: Symmetric, no curvature, ROM normal, no CVA tenderness. Abdomen: Soft, non-tender, bowel sounds active all four quadrants, no masses, no organomegaly. Extremities: Extremities normal, atraumatic, no cyanosis or edema. Pulses: 2+ and symmetric. Skin: Skin color, texture, tugor normal, no rashes or lesions. Neurologic: Alert oriented x3 cranial nerves II through XII show slight affect with lack of vision on the left side mostly quarter of the visual field per patient description., generalized weakness not able to do gait exam visual field apparently has lack of the left side to the left side mostly the upper part. ASSESSMENT AND PLAN: _Stroke impacting the right occipital area affecting quarter of the vision on the left upper bilaterally. See neurology so far agree with the current diagnosis, patient is going for MRI of the brain will continue aggressive management for blood pressure and cholesterol will try to find out if she had any PFO or any sign of A-fib. _Elevated blood pressure: Will initiate amlodipine 2.5 mg twice a day hold only if systolic blood pressure below 120. _Hyperlipidemia: Patient was initiated on a higher dose of statin with atorvastatin 40 mg a day. Try to target LDL to keep it below 70. _High suspicion for A-fib nonsustained specially with the finding of all the stroke in the cerebellum along with the new stroke this time make that are the possibilities higher despite the echocardiogram does not show any sign and symptom at this point patient will require longer-term heart monitor. _Vitamin D deficiency: Has been on vitamin D supplement for a long time along with calcium continue medication. _Mild confusion with altered mental status: Patient still not acting of herself which is most likely part of the stroke itself and impact related to the he adache and probably the confusion from lack of vision, will continue current management aggressive physical therapy and Occupational Therapy. _GI prophylaxis: Patient be on Pepcid 20 mg daily. Discussion: Complete testing at this point patient will remain on Farxiga, Plavix, statin, amlodipine and aspirin and will require 30 days heart monitor follow-up as an outpatient in the next few days also patient will benefit from going back to see ophthalmology and whether need to see neuro-ophthalmology or not this to be determined. Objective - Vital Signs Vital signs: Vital Signs Temp 97.1 F L 12/05/23 04:03 Pulse 71 12/05/23 04:03 Resp 16 12/05/23 04:03 BP 100/52 12/05/23 04:03 Pulse Ox 97 10/06/24 04:03 FiO2 Intake & Output 12/04/23 12/05/23 12/05/23 18:59 06:59 18:59 Intake Total 354 10 Balance 354 10 Weight 52 kg Intake: IV 10 Invasive Line 1 10 Oral 354 Other: Voiding Method Toilet Toilet # Voids 2 2 - Labs CBC & Chem 7: 12/03/23 11:38 12/03/23 11:38 Labs: Abnormal Lab Results - Last 24 Hours (Table) 12/03/23 Range/Units 11:38 Cholesterol 207.00 H (0.00-200.00) mg/dL HDL Cholesterol 62.60 H (40.00-60.00) mg/dL
[2023-12-05 13:34] VITALS: BP 104/56; PULSE 70; RESP 18
--- NOTE | 2023-12-05 13:56 | P.CRDCN ---
History of Present Illness Consult date: 12/05/23 Consult reason: other (stroke) Chief complaint: dizzy, vision loss left eye History of present illness: History of present illness: Patient is a pleasant 78-year-old female with significant past medical history of osteoarthritis and hyperlipidemia who presented to the hospital with dizziness and vision loss in her left eye. She does not currently follow with a director insurance. She denies any significant family history of heart disease. She does not smoke or drink alcohol. She was diagnosed with acute CVA of the i nferior medial right occipital lobe. 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 Echocardiogram shows EF 55-60%, grade 1 diastolic dysfunction, no significant valve issues. CTA of the head and neck revealed no significant stenosis. Carotid ultrasound also showed no significant stenosis. She denies any chest pain or pressure. No shortness of breath. She does have occasional palpitations. Labs reviewed: LDL 121, total cholesterol 207, HDL 62, A1c 5.8. REVIEW OF SYSTEMS: No fever or chills. No cough or expectoration. No diaphoresis. Patient denies headache. Patient denies any stomach discomfort. No nausea, vomiting. No hematochezia. No hematemesis. Denies any black stools or bl ood in his stools. Denies dysuria or hematuria. No muscle weakness or numbness. No chest pain or pressure. Left vision changes, dizziness. PHYSICAL EXAMINATION: This is a 78-year-old female in no apparent distress at the time of my examination. HEENT: Head is atraumatic, normocephalic. Pupils are equal, round. Sclerae anicteric. Conjunctivae are clear. Mucous membranes of the mouth are moist. Neck is supple. There is no jugular venous distention. Left carotid bruit is heard. CHEST EXAMINATION: Lungs are clear to auscultation. No chest wall tenderness is noted on palpation or with deep breathing. HEART EXAMINATION: Heart regular rate and rhythm. S1, S2 heard. No murmurs, gallops or rub. ABDOMEN: Soft, nontender. Bowel sounds are heard. EXTREMITIES: 2+ peripheral pulses with no evidence of peripheral edema and no calf tenderness noted. NEUROLOGIC EXAMINATION: Patient is awake, alert and oriented x3. IMPRESSION AND PLAN: CVA, cryptogenic Hypertension Hyperlipidemia Dizziness Left carotid bruit PLAN: CTA of the neck as well as carotid ultrasound were unremarkable. Recommend checking 30-day event monitor to rule out arrhythmia given cryptogenic stroke. Consider loop recorder if no other explanation and 30-day monitor unrevealing. Also may consider ENEIDA to complete stroke workup as an outpatient. Okay to discharge from a cardiology standpoint. I am dictating on behalf of Dr. Joon Valdez's history/physical and assessment/plan. Past Medical History Past Medical History: No Reported History Additional Past Medical History / Comment(s): Mammogram in July 2023: showed calcification in milk ducts. Dizzy spells. History of Any Multi-Drug Resistant Organisms: None Reported Past Surgical History: Appendectomy, Section, Hysterectomy, Tubal Ligation Additional Past Surgical History / Comment(s): bowel resection Past Anesthesia/Blood Transfusion Reactions: No Reported Reaction Past Psychological History: No Psychological Hx Reported Past Alcohol Use History: Rare Past Drug Use History: None Reported Medications and Allergies Home Medications Medication Instructions Recorded Confirmed Type Aspirin [Adult Low Dose Aspirin EC] 162 mg PO BID 07/21/15 12/03/23 History Ascorbic Acid [Vitamin C] 1,000 mg PO DAILY 12/03/23 12/03/23 History Calcium Carbonate [Calcium] 1,200 mg PO DAILY 12/03/23 12/03/23 History Cholecalciferol (Vitamin D3) 75 mcg PO DAILY 12/03/23 12/03/23 History [Vitamin D3 (3000 Iu)] L.acidoph,Paracasei, B.lactis 1 cap PO DAILY 12/03/23 12/03/23 History [Probiotic] Magnesium Oxide [Magnesium] 500 mg PO DAILY 12/03/23 12/03/23 History Vitamin E (Dl,Tocopheryl Acet) 400 unit PO DAILY 12/03/23 12/03/23 History [Vitamin E (400 Iu = 180 mg)] Acetaminophen Tab [Tylenol] 650 mg PO Q6HR PRN tab 12/05/23 Rx Aspirin 81 mg PO DAILY tab 12/05/23 Rx Atorvastatin [Lipitor] 80 mg PO HS #90 tab 12/05/23 Rx Clopidogrel [Plavix] 75 mg PO DAILY #90 tab 12/05/23 Rx Linagliptin [Tradjenta] 5 mg PO DAILY #30 tab 12/05/23 Rx amLODIPine [Norvasc] 2.5 mg PO BID #120 tab 12/05/23 Rx Allergies Allergy/AdvReac Type Severity Reaction Status Date / Time Tetracyclines Allergy Ear Verified 12/03/23 13:58 Swelling Physical Exam Vitals: Vital Signs Temp Pulse Resp BP Pulse Ox 12/05/23 08:00 97.4 F L 71 16 100/40 97 12/05/23 04:03 97.1 F L 71 16 100/52 97 12/04/23 23:25 97.8 F 82 18 98/63 96 12/04/23 19:35 97.9 F 92 16 134/59 96 12/04/23 16:00 98.1 F 79 16 126/77 96 12/04/23 14:00 85 16 Intake and Output 12/04/23 12/05/23 12/05/23 22:59 06:59 14:59 Intake Total 128 240 Balance 128 240 Intake: IV 10 Invasive Line 1 10 Oral 118 240 Other: Voiding Method Toilet Toilet Toilet # Voids 2 2 Weight 52 kg Results 12/03/23 11:38 12/03/23 11:38 Current Medications Generic Name Dose Route Start Last Admin Trade Name Freq PRN Reason Stop Dose Admin Acetaminophen 650 mg 12/03/23 13:40 Acetaminophen Tab 325 Mg Tab PO Q6HR PRN Pain Amlodipine Besylate 2.5 mg 12/03/23 21:00 12/05/23 10:31 Amlodipine 2.5 Mg Tab PO Not Given BID ROSAS Ascorbic Acid 1,000 mg 12/04/23 09:00 12/05/23 08:28 Ascorbic Acid 500 Mg Tab PO 1,000 mg DAILY ROSAS Administration Aspirin 81 mg 12/04/23 09:00 12/05/23 08:28 Aspirin 81 Mg PO 81 mg DAILY ROSAS Administration Atorvastatin Calcium 80 mg 12/03/23 21:00 12/04/23 19:34 Atorvastatin 80 Mg Tab PO 80 mg HS ROSAS Administration Calcium Carbonate/Glycine 1,000 mg 12/04/23 09:00 12/05/23 08:28 Calcium Carbonate 500 Mg Chewable PO 1,000 mg DAILY ROSAS Administration Cholecalciferol 75 mcg 12/04/23 09:00 12/05/23 08:28 Cholecalciferol 25 Mcg (1000 Iu) Tablet PO 75 mcg DAILY ROSAS Administration Clopidogrel Bisulfate 75 mg 12/03/23 17:15 12/05/23 08:28 Clopidogrel 75 Mg Tab PO 75 mg DAILY ROSAS Administration Sodium Chloride 1,000 mls @ 100 mls/hr 12/03/23 13:45 12/04/23 21:22 Saline 0.9% IV Not Given .Q10H ROSAS Linagliptin 5 mg 12/04/23 09:00 12/05/23 08:28 Linagliptin 5 Mg Tablet PO 5 mg DAILY ROSAS Administration Magnesium Oxide 400 mg 12/04/23 09:00 12/05/23 08:28 Magnesium Oxide 400 Mg Tab PO 400 mg DAILY ROSAS Administration Intake and Output 12/04/23 12/05/23 12/05/23 22:59 06:59 14:59 Intake Total 128 240 Balance 128 240 Intake: IV 10 Invasive Line 1 10 Oral 118 240 Other: Voiding Method Toilet Toilet Toilet # Voids 2 2 Weight 52 kg 12/03/23 11:38 12/03/23 11:38
--- NOTE | 2023-12-06 02:09 | P.PN ---
Subjective Progress Note Date: 12/05/23 Patient was seen for a follow-up. Patient is laying comfortably in the bed. She is feels her vision is getting better. No new focal symptoms. Objective - Vital Signs Vital signs: Vital Signs Temp 97.4 F L 12/05/23 08:00 Pulse 71 12/05/23 08:00 Resp 16 12/05/23 08:00 BP 100/40 12/05/23 08:00 Pulse Ox 97 12/05/23 08:00 FiO2 Intake & Output 12/04/23 12/05/23 12/05/23 18:59 06:59 18:59 Intake Total 354 10 240 Balance 354 10 240 Weight 52 kg Intake: IV 10 Invasive Line 1 10 Oral 354 240 Other: Voiding Method Toilet Toilet Toilet # Voids 2 2 - Exam Mental status, speech and language functions are normal. Cranial nerves significant for some left visual field deficit. It seems to be getting better on the left side, even as compared to yesterday. She has patchy areas of visual field deficits on the left side, slightly more on the left upper quadrant. Overall better than yesterday. Less neglect on the left. No pronator drift and the strength is normal. No ataxia. Sensations equal. Gait normal. - Labs CBC & Chem 7: 12/03/23 11:38 12/03/23 11:38 Assessment and Plan Assessment: * Acute ischemic stroke involving the right occipital lobe. Patient has presented with left homonymous hemianopia. The visual field deficit is more prominent in the left upper quadrant and tapers laterally in the left lower quadrant. NIH stroke scale 2. Her visual field deficit seems to be getting better. * Hypertension * Hyperlipidemia Plan: * MRI of the brain without contrast, revealed acute inferior medial right occipital lobe infarct. 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 Chronic appearing periventricular white matter ischemic change. I personally reviewed MRI agree with the findings. * 2-D echo revealed mild concentric LVH. No obvious regional wall motion abnormalities. LVEF 55 to 60%. Grade 1 diastolic dysfunction. Normal left atrial size. Mild MR. Mild RV dilation with normal systolic function. * CTA head and neck showed: No evidence of dissection of the cervical internal carotid arteries or vertebral arteries or any evidence of significant stenosis at the carotid bifurcations. No evidence of high-grade stenosis or intracranial aneurysm. * Fasting a.m. lipid panel, with cholesterol 207, LDL 121, HDL 62, triglycerides 117. Agree with starting high intensity statins. Patient was not on any statins prior to arrival. * Hemoglobin A1c 5.8 * Optimize control of blood pressure. BP well-controlled. * Patient has been on aspirin regimen 162 mg twice a day. Patient has failed aspirin. We will switch to Plavix 75 mg daily. Patient to be maintained on aspirin and Plavix together for 21 days, then stop aspirin and continue Plavix. * Suggest 30-day event monitoring outpatient to rule out paroxysmal atrial fibrillation. * Telemetry monitoring rule out any arrhythmia * PT, OT, speech therapy * DVT prophylaxis: Patient low risk. Patient fully ambulatory. * Neurologically clear for discharge.
--- NOTE | 2023-12-08 23:35 | P.DS ---
Providers Date of admission: 12/03/23 13:41 Attending physician: Chito Ríos Consults: 12/03/23 13:40 Consult Physician Routine Consulting Provider: Stacy Hoang Consult Reason/Comments: CVA Do you want consulting provider notified?: Yes 12/03/23 16:49 Consult Physician Routine Consulting Provider: Adam Miller Consult Reason/Comments: Quadrantanopia Do you want consulting provider notified?: Yes 12/05/23 08:10 Consult Physician Routine Consulting Provider: Pato Lizama Consult Reason/Comments: CVA possible non sustain A FIB will need either Loop or 30 days Monitor Do you want consulting provider notified?: Yes Primary care physician: [facility] Course: HISTORY OF PRESENT ILLNESS: 78-year-old active patient for last 20 years with past history of osteoarthritis, mild osteopenia, elevated blood pressure and hyperlipidemia who called the office in the morning and left a voicemail complaining that she had severe headache the day before lasted long period of time with very impaired bowel and that taking 2 aspirin took a nap took another 2 aspirin to settle the headache down and then developed to have significant vision loss and abnormal balance and gait and slight confusion decided not to seek any help woke up the following morning which is 11/2023 having still lack of vision in part of her visual field the left side continue to have severe headache and continue to be slightly bit confused and mildly altered. Called her back to go to the emergency room as soon as possible. Patient mated to [facility] by 11:00 was seen and evaluated still to some degree having lack of vision and blurriness mostly on the left side but no weakness her speech is normal not able to do gait exam at the time. At the presentation her blood pressure was mildly elevated with pulse running 70 bpm laboratory value shows normal CBC chemistry with mildly elevated blood sugar with normal troponin normal liver function test coagulation. EKG showed sinus rhythm with incomplete right bundle branch block which is old. CAT scan of the brain shows acute/subacute stroke involving the right occipital lobe nonspecific white matter changes secondary to chronic small vessel disease. CTA of the brain and the neck shows no evidence of dissection of the cervical internal carotid artery or vertebral artery or any evidence of significant stenosis of the carotid bifurcation. No evidence of high-grade stenosis or intracranial aneurysm. The patient at this point was admitted hospital continue to have the upper quarter of her vision in the left side loss. Neurology was consulted patient was admitted to telemetry testing including echocardiogram, carotid ultrasound and MRI of the brain was scheduled. 12/04/2023: Patient is recovering from her stroke, still have arrangement for MRI around 11:00 today, carotid ultrasound failed to show any abnormality, bus monitor does not show any atrial fibrillation so far and echo was negative for any thrombus or any valvular heart disease. Neurology seen patient yesterday and agree with the current diagnosis which patient had acute right sided inferior medial occipital lobe infarct has affected her visual field of both side with a left lateral upper quarter. Left recommendation to see ophthalmology so far and patient might need to go for transesophageal echocardiogram along with loop recorder monitor to for sure no whether we have A-fib or any PFO. She is not having any headache and Blood pressure and vitals so far has been better controlled remain on amlodipine, Farxiga, atorvastatin, and with neuro recommendation initially to initiate Plavix most likely for 3 weeks along with aspirin and continue on aspirin afterward without Plavix. 12/05/2023: After done with MRI showed acute inferior medial right occipital lobe infarct with old infarct in the cerebellum neurology at this point recommending to maximize medical management with higher intensity statin such as atorvastatin 40 mg a day also optimize blood pressure to keep it below 130 systolic patient will be maintained on aspirin and Plavix for total of 21 days then will continue on Plavix. And agree with neurology based on the current finding patient will probably require 30 days heart monitor eventually might ask cardiology to see if having to do loop recorder beneficial or just 30 days heart monitor. REVIEW OF SYSTEMS: CONSTITUTIONAL: Well-developed no acute respiratory distress. EYES: No icterus sclerae, no conjunctivitis. EARS, NOSE, MOUTH, THROAT, and FACE: No sore throat, lymphadenopathy, carotid bruits or deformity. RESPIRATORY: No SOB cough or wheezes. CARDIOVASCULAR: No CP, Palpitation, PND, Orthopnea, or angina. GASTROINTESTINAL: No Abd pain, Nausea or vomiting, no Diarrhea or constipation, No GI Bleed, no distention or masses. GENITOURINARY: Negative for Hematuria or UTI, no kidney stones. INTEGUMENT/BREAST: Negative for any muscular injury with mild osteoarthritis.. HEMATOLOGIC/LYMPHATIC: Negative for bleed or purpura. MUSCULOSKELTAL: Negative for Myalgia or arthralgia. NEURLOGICAL: No weakness or syncope positive for blurred vision and lack of vision on the left side. BEHAVIORAL/PSYCH: Negative. ENDOCRINE: Negative. PHYSICAL EXAMINATION: General Appearance: Alert, cooperative, no distress, appears stated age. Neck HEENT: Supple, no lymphadenopathy, no thyroid enlargement, no carotid bruits. Lungs: Clear to auscultation without crackles or wheezes no rhonchi, no deformity. Chest Wall: Chest wall normal expansion with deep inspiration no tenderness and no deformity was found on exam, no costochondral pain or discomfort. Heart: Regular rate and rhythm, S1, S2 normal, no murmur, rub or gallop. Back: Symmetric, no curvature, ROM normal, no CVA tenderness. Abdomen: Soft, non-tender, bowel sounds active all four quadrants, no masses, no organomegaly. Extremities: Extremities normal, atraumatic, no cyanosis or edema. Pulses: 2+ and symmetric. Skin: Skin color, texture, tugor normal, no rashes or lesions. Neurologic: Alert oriented x3 cranial nerves II through XII show slight affect with lack of vision on the left side mostly quarter of the visual field per patient description., generalized weakness not able to do gait exam visual field apparently has lack of the left side to the left side mostly the upper part. ASSESSMENT AND PLAN: _Stroke impacting the right occipital area affecting quarter of the vision on the left upper bilaterally. See neurology so far agree with the current diagnosis, patient is going for MRI of the brain will continue aggressive management for blood pressure and cholesterol will try to find out if she had any PFO or any sign of A-fib. _Elevated blood pressure: Will initiate amlodipine 2.5 mg twice a day hold only if systolic blood pressure below 120. _Hyperlipidemia: Patient was initiated on a higher dose of statin with atorvasta tin 40 mg a day. Try to target LDL to keep it below 70. _High suspicion for A-fib nonsustained specially with the finding of all the stroke in the cerebellum along with the new stroke this time make that are the possibilities higher despite the echocardiogram does not show any sign and symptom at this point patient will require longer-term heart monitor. _Vitamin D deficiency: Has been on vitamin D supplement for a long time along with calcium continue medication. _Mild confusion with altered mental status: Patient still not acting of herself which is most likely part of the stroke itself and impact related to the headache and probably the confusion from lack of vision, will continue current management aggressive physical therapy and Occupational Therapy. _GI prophylaxis: Patient be on Pepcid 20 mg daily. Discussion: Complete testing at this point patient will remain on Farxiga, Plavix, statin, amlodipine and aspirin and will require 30 days heart monitor follow-up as an outpatient in the next few days also patient will benefit from going back to see ophthalmology and whether need to see neuro-ophthalmology or not this to be determined. 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 Call back patient and encouraged to make it to the emergency department at [facility] the patient ended up coming around 11:00 was seen and evaluated is still having slight degree of lack of vision mostly the left upper corner of both eyes with generalized weakness and fatigue with no other focalization. Vitals were stable with pulse rate 70 bpm no A-fib CBC and chemistry failed to show any abnormality troponin was negative EKG showed incomplete right bundle branch block with no change from before. CAT scan of the brain shows acute versus subacute stroke involving the right occipital lobe nonspecific white matter change consistent with chronic small vessel disease. CT of the brain and neck shows no evidence of dissection or cervical internal carotid or vertebral artery stenosis no higher degree. She was seen and evaluated by neurology and agree with the current plan to run an MRI of the brain, EEG, carotid ultrasound, start patient on Plavix and consider an echocardiogram as well result came back compatible with no major quite stenosis of the carotid artery, echocardiogram shows no sign of thrombus or clot at the time. Initiated plan with cardiology to do 30 days heart monitor and furthermore if needed transesophageal echocardiogram. After her MRI result came back consistent with same findings seen on the CAT scan which is acute/subacute stroke involving the right occipital lobe nonspecific white matter change consistent with small vessel disease. Arrangement for 30 days heart monitor by cardiology as an outpatient the patient has made arrangements for Dr. Valdez as an outpatient to arrange for her t ransesophageal echocardiogram and furthermore loop recorder if needed. She was ready for discharge on 12/05/2023. Time spent on patient discharge was over 35 minutes. Patient Condition at Discharge: Stable Plan - Discharge Summary Discharge Rx Participant: No New Discharge Prescriptions: New Clopidogrel [Plavix] 75 mg PO DAILY #90 tab Aspirin 81 mg PO DAILY tab Atorvastatin [Lipitor] 80 mg PO HS #90 tab amLODIPine [Norvasc] 2.5 mg PO BID #120 tab Linagliptin [Tradjenta] 5 mg PO DAILY #30 tab Acetaminophen Tab [Tylenol] 650 mg PO Q6HR PRN tab PRN Reason: Pain Continue Aspirin [Adult Low Dose Aspirin EC] 162 mg PO BID Vitamin E (Dl,Tocopheryl Acet) [Vitamin E (400 Iu = 180 mg)] 400 unit PO DAILY Magnesium Oxide [Magnesium] 500 mg PO DAILY Calcium Carbonate [Calcium] 1,200 mg PO DAILY Ascorbic Acid [Vitamin C] 1,000 mg PO DAILY Cholecalciferol (Vitamin D3) [Vitamin D3 (3000 Iu)] 75 mcg PO DAILY L.acidoph,Paracasei, B.lactis [Probiotic] 1 cap PO DAILY Discharge Medication List Aspirin [Adult Low Dose Aspirin EC] 162 mg PO BID 07/21/15 [History] Ascorbic Acid [Vitamin C] 1,000 mg PO DAILY 12/03/23 [History] Calcium Carbonate [Calcium] 1,200 mg PO DAILY 12/03/23 [History] Cholecalciferol (Vitamin D3) [Vitamin D3 (3000 Iu)] 75 mcg PO DAILY 12/03/23 [History] L.acidoph,Paracasei, B.lactis [Probiotic] 1 cap PO DAILY 12/03/23 [History] Magnesium Oxide [Magnesium] 500 mg PO DAILY 12/03/23 [History] Vitamin E (Dl,Tocopheryl Acet) [Vitamin E (400 Iu = 180 mg)] 400 unit PO DAILY 12/03/23 [History] Acetaminophen Tab [Tylenol] 650 mg PO Q6HR PRN tab 12/05/23 [Rx] Aspirin 81 mg PO DAILY tab 12/05/23 [Rx] Atorvastatin [Lipitor] 80 mg PO HS #90 tab 12/05/23 [Rx] Clopidogrel [Plavix] 75 mg PO DAILY #90 tab 12/05/23 [Rx] Linagliptin [Tradjenta] 5 mg PO DAILY #30 tab 12/05/23 [Rx] amLODIPine [Norvasc] 2.5 mg PO BID #120 tab 10/06/24 [Rx] Follow up Appointment(s)/Referral(s): Chito Ríos MD [Primary Care Provider] - 1-2 days Discharge Disposition: HOME SELF-CARE
== END 2023-12-05 15:36 | disposition home or self-care (01) | DRG 66 ==
LOC: EC 11:10 → 3SCARD 13:41
PROVIDERS: ADMIT Internal Medicine Geriatric Medicine; ATTEND Internal Medicine Geriatric Medicine
DX: I63.9 Cerebral infarction, unspecified (principal); R29.702 NIHSS score 2; H54.62 Unqualified visual loss, left eye, normal vision right eye; I45.10 Unspecified right bundle-branch block; I10 Essential (primary) hypertension; E78.5 Hyperlipidemia, unspecified; E55.9 Vitamin D deficiency, unspecified; R73.9 Hyperglycemia, unspecified; H53.462 Homonymous bilateral field defects, left side; M85.80 Other specified disorders of bone density and structure, unspecified site; M19.90 Unspecified osteoarthritis, unspecified site; Z79.02 Long term (current) use of antithrombotics/antiplatelets; Z79.82 Long term (current) use of aspirin; Z79.84 Long term (current) use of oral hypoglycemic drugs; Z79.899 Other long term (current) drug therapy; Z86.73 Personal history of transient ischemic attack (TIA), and cerebral infarction without residual deficits
CPT/HCPCS: 36415; 70450; 70496; 70498; 70551; 80053; 80061; 82550; 83036; 84484; 85025; 85610; 85730; 93005; 93306; 93880; 96360; 96361; 99285

== ENCOUNTER 2023-12-21 08:33 | Day surgery (SDC) | payer MEDICARE ==
[2023-12-16 11:52] VITALS: BMI 22.1
[2023-12-21 09:03] VITALS: RESP 16; TEMP 98.2
[2023-12-21] MEDS: IV FLUID CONTINUATION 500 ML IV ONE (09:03)
[2023-12-21] MEDS: SODIUM CHLORIDE 0.9% 500 ML 500 ML IV ONE (09:11)
[2023-12-21] MEDS: BENZOCAINE SPRAY 1 EACH MM ONE (10:06)
[2023-12-21] MEDS: fentaNYL (PF) 50 MCG/ML 2 ML AMP IVP ONE ×3 (10:07→10:11)
[2023-12-21] MEDS: MIDAZOLAM 2 MG/2 ML VIAL IVP ONE ×4 (10:07→10:14)
--- NOTE | 2023-12-21 10:29 | P.TEE ---
Description of Procedure(s): Procedure performed: Transesophageal Echocardiogram with color flow doppler, pulsed wave doppler and continuous wave doppler, moderate conscious sedation Moderate conscious sedation: Moderate conscious sedation was supplied with direct supervision of myself using Versed and Fentanyl. Complications: none Indications: cryptogenic stroke PROCEDURE: After the risks, benefits and alternatives of the above mentioned procedure was explained in detail with the patient, informed consent was obtained. Patient was brought to the lab in a fasting state. Patient was given IV Versed and Fentanyl for sedation. The throat was sprayed with Hurricane to anesthetize the throat. A lubricated Omni probe was then introduced into the es ophagus and stomach and multiple views were obtained. 2D echo with color flow doppler, pulsed wave doppler and continuous wave doppler was utilized. Agitated saline bubbles were injected to assess for any intra-atrial shunt. The probe was then removed. Patient tolerated the procedure well. Patient was transferred to the post procedure area in stable and satisfactory condition. FINDINGS: 1. The aortic valve is tricuspid and function normally. 2. The mitral valve appears be normal with trace regurgitation. 3. Tricuspid valve is normal with trace tricuspid regurgitation 4. There is a small PFO 5. Left atrial appendage is free of clot. 6. Left ventricular size and function appear to be normal with left ventricular ejection fraction 55%
[2023-12-21 12:40] VITALS: BP 130/62; PULSE 70
== END 2023-12-21 11:39 | disposition home or self-care (01) ==
LOC: CATHCVL 08:33
PROVIDERS: ATTEND Internal Medicine
CPT/HCPCS: 93312; 93320; 93325

== ENCOUNTER → 2024-09-18 | Outpatient (CLI) | payer MEDICARE ==
--- NOTE | 2024-09-19 08:46 | MM ---
Reason for Exam: Screening (asymptomatic). Last mammogram was performed 1 year(s) and 1 month(s) ago. Patient History: Menarche at age 9. First Full-Term at age 18. Left ovary removed at age 57. Right ovary removed at age 57. Hysterectomy at age 57. Postmenopausal. Patient used Estrogen for 4 years. 2000, Benign Excisional Biopsy on the left side. Risk Values: Conchis 5 year model risk: 1.9%. NCI Lifetime model risk: 2.7%. Prior Study Comparison: 08/06/2022 Right MG 3D work up w/cad [facility], [facility]. 02/09/2023 Right MG 3D diag mammo w/cad RT, [facility]. 08/25/2023 Bilateral MG 3D diag mammo w/cad [facility], [facility]. Tissue Density: The breasts are heterogeneously dense, which may obscure small masses. Findings: Analyzed By CAD. Right breast: There is no suspicious group of microcalcifications or new suspicious mass. Benign-appearing calcifications right breast. Left breast: There is no suspicious group of microcalcifications or new suspicious mass. Benign-appearing calcifications left breast. Overall Assessment: Benign, BI-RAD 2 Management: Screening Mammogram of both breasts in [address] [facility] will attempt to contact patient to return for supplemental views and ultrasound if indicated. Patient should continue monthly self-breast exams. A clinical breast exam by your physician is recommended on an annual basis. This exam should not preclude additional follow-up of suspicious palpable abnormalities. Note on Conchis scores and lifetime risk: 1. A Conchis score greater than 3% is considered moderate risk. If this is the case, consider specialist referral to assess eligibility for a risk reducing agent. 2. If overall lifetime risk for the development of breast cancer is 20% or higher, the patient may qualify for future screening with alternating mammogram and breast MRI. [facility], , 09/19/2024 8:44 AM. Electronically signed and approved by: Jewel Bourne DO
== END | disposition home or self-care (01) ==
LOC: RADMAMWWP 15:46
PROVIDERS: ATTEND Internal Medicine Geriatric Medicine
DX: Z12.31 Encounter for screening mammogram for malignant neoplasm of breast (principal); R92.333 Mammographic heterogeneous density, bilateral breasts; R92.1 Mammographic calcification found on diagnostic imaging of breast; Z78.0 Asymptomatic menopausal state
CPT/HCPCS: 77063; 77067